=== PATIENT | male | born 1980 | race African-American/Black ===

== ENCOUNTER 2024-07-20 17:37 | Emergency (ER) | payer SELFPAY ==
[~2024-07-20] VITALS: Ht 182.9 cm; Wt 90.0 kg
[2024-07-20 17:40] VITALS: BP 144/80; PULSE 70; RESP 18; TEMP 37.1; O2SAT 99
[2024-07-20 18:32] LABS: BASOPHILS % 0.7 % (0.0-2.0); EOSINOPHILS % 1.9 % (0.0-5.0); HEMATOCRIT. 45.3 % (42.0-52.0); HEMOGLOBIN. 15.6 g/dL (14.0-18.0); LYMPHOCYTES % 22.8 % (20.0-50.0); MEAN CORPUSCULAR HEMOGLOBIN 33.9 pg (28.0-32.0); MEAN CORPUSCULAR HGB CONC 34.5 g/dL (31.0-37.0); MEAN CORPUSCULAR VOLUME 98.4 fL (80.0-94.0); MEAN PLATELET VOLUME 8.7 fl (7.4-10.4); NEUTROPHILS % 67.6 % (40.0-76.0); PLATELET 226 x1000/uL (130-400); WHITE BLOOD COUNT 9.7 x1000/uL (4.5-11.0)
[2024-07-20 18:39] LABS: CHLORIDE 102 mEq/L (98-107); POTASSIUM 3.8 mEq/L (3.5-5.1); SODIUM 139 mEq/L (136-145)
[2024-07-20 18:40] LABS: CALCIUM 9.3 mg/dL (8.7-10.4); CARBON DIOXIDE 25 mEq/L (21-32)
[2024-07-20 18:45] LABS: CREATININE 1.3 mg/dL (0.6-1.3); GLUCOSE 85 mg/dL (70-105); UREA NITROGEN BLOOD 9 mg/dL (9-23)
[2024-07-20 18:46] LABS: ETHANOL BLOOD 112 mg/dL (<10)
[2024-07-20 18:47] LABS: TROPONIN I HIGH SENSITIVITY < 4 ng/L (3.0-53)
[2024-07-20] MEDS: TETANUS, DIPHTHERIA, PERTUSSIS VAC/PF 0.5ML (>10YR OLD) IM ONE (19:40)
== END 2024-07-20 21:06 | disposition home or self-care (01) ==
LOC: ER 17:37
DX: S01.112A Laceration without foreign body of left eyelid and periocular area, initial encounter (principal); R55 Syncope and collapse; Z79.899 Other long term (current) drug therapy; X58.XXXA Exposure to other specified factors, initial encounter; Y93.89 Activity, other specified; Y92.89 Other specified places as the place of occurrence of the external cause; Y99.8 Other external cause status
CPT/HCPCS: 80048; 80320; 83880; 85025; 84484; 36415; 71045; 12011; 99284; Z7610 ×3; 90715; 99283; G0480